=== PATIENT | female | born 1955 | race Caucasian/White ===

== ENCOUNTER 2024-02-24 17:52 | Outpatient (REF) | payer MEDICARE, SELFPAY | END 2024-02-24 17:53 | disposition home or self-care (01) | LOC: LBN 17:52 | PROVIDERS: Visit Provider Physician Assistant | DX: N39.0 Urinary tract infection, site not specified (principal); R82.89 Other abnormal findings on cytological and histological examination of urine | CPT/HCPCS: 87086 ==